=== PATIENT | male | born 1940 | race Caucasian/White ===

== ENCOUNTER → 2016-05-18 | Outpatient (CLI) | payer OTHER, MEDICARE ==
[2016-05-18 07:50] LABS: CREATININE, URINE 117.1 MG/DL (15-500)
== END ==
LOC: LAB 07:18
PROVIDERS: ATTEND Internal Medicine
DX: E11.9 Type 2 diabetes mellitus without complications (principal)
CPT/HCPCS: 36415; 82043; 83036

== ENCOUNTER → 2016-10-12 | Outpatient (CLI) | payer OTHER, MEDICARE ==
[2016-10-12 06:49] LABS: BASOPHILS # (AUTO) 0.17 10*3/UL; BASOPHILS % (AUTO) 2.2 % (0-1); EOSINOPHILS # (AUTO) 0.32 10*3/UL; EOSINOPHILS % (AUTO) 4.1 % (0-8); HEMATOCRIT 45.9 % (42.0-52.0); HEMOGLOBIN 15.7 g/dL (14.0-18.0); LYMPHOCYTES # (AUTO) 2.02 10*3/uL; MEAN CORPUSCULAR HEMOGLOBIN 29.5 PG (27-31); MEAN CORPUSCULAR HGB CONC 34.2 g/dL (33-37); MEAN CORPUSCULAR VOLUME 86.1 FL (80-90); MEAN PLATELET VOLUME 8.8 FL (7.4-12.2); MONOCYTES # (AUTO) 0.62 10*3/UL (0.3-0.8); MONOCYTES % (AUTO) 7.9 % (5-15); NEUTROPHILS # (AUTO) 4.68 10*3/UL; NEUTROPHILS % (AUTO) 59.7 % (50-80); RED BLOOD COUNT 5.33 10^6/uL (4.70-6.10)
[2016-10-12 06:52] LABS: PLATELET MORPHOLOGY COMMENT NORMAL MORPHOLOGY (NORM); RBC MORPHOLOGY COMMENT NORMAL MORPHOLOGY (NORM); WBC MORPHOLOGY COMMENT NORMAL MORPHOLOGY (NORM)
[2016-10-12 07:02] LABS: CALCIUM 9.6 mg/dL (8.7-10.7); CHOL/HDL RATIO 1.88 RATIO (0-4.0); HEMOGLOBIN A1C 6.68 % (4.2-6.0); SERUM ALBUMIN 4.3 g/dL (3.5-4.8)
[2016-10-12 07:03] LABS: CREATININE, URINE 111.6 MG/DL (15-500)
== END ==
LOC: LAB 06:31
PROVIDERS: ATTEND Internal Medicine
DX: E11.9 Type 2 diabetes mellitus without complications (principal); E78.5 Hyperlipidemia, unspecified; I10 Essential (primary) hypertension; N52.9 Male erectile dysfunction, unspecified; Z12.5 Encounter for screening for malignant neoplasm of prostate
CPT/HCPCS: 36415; 80053; 80061; 82043; 82550; 83036; 84443; 85025; 99214; G0103; G0463; 90670